=== PATIENT | female | born 1975 | race Caucasian/White ===

== ENCOUNTER 2019-12-31 17:53 | Emergency (ER) | payer MEDICAID ==
[~2019-12-31] VITALS: Ht 170.2 cm; Wt 72.7 kg
[2019-12-31 17:57] VITALS: BP 110/81
== END 2019-12-31 19:10 | disposition left against medical advice (07) ==
LOC: ER 17:53
DX: F10.129 Alcohol abuse with intoxication, unspecified (principal); F17.200 Nicotine dependence, unspecified, uncomplicated; Y90.9 Presence of alcohol in blood, level not specified
CPT/HCPCS: 99283

== ENCOUNTER 2020-05-23 12:30 | Emergency (ER) | payer MEDICAID ==
[~2020-05-23] VITALS: Ht 170.2 cm; Wt 63.0 kg
[~2020-05-23 12:30] MED LIST: LIDOcaine 1% 30ml preserv. free vial ONE
[2020-05-23 12:34] VITALS: BP 124/73
[2020-05-23] MEDS ORDERED: ibuprofen tablet 400 MG TABLET PO ONE (14:20)
[2020-05-23] MEDS ORDERED: CEPH500C5 PO (14:44)
[2020-05-23] MEDS ORDERED: BACDS PO (14:44)
== END 2020-05-23 15:01 | disposition home or self-care (01) ==
LOC: ER 12:30
DX: L02.512 Cutaneous abscess of left hand (principal); Z86.14 Personal history of Methicillin resistant Staphylococcus aureus infection; Z59.0 Homelessness; Z79.899 Other long term (current) drug therapy
CPT/HCPCS: 26010; 99283; J2001

== ENCOUNTER 2020-08-23 08:25 | Emergency (ER) | payer MEDICAID ==
[~2020-08-23] VITALS: Ht 170.2 cm; Wt 63.6 kg
[2020-08-23 08:30] VITALS: BP 154/78
== END 2020-08-23 09:07 | disposition home or self-care (01) ==
LOC: ER 08:28
DX: F15.10 Other stimulant abuse, uncomplicated (principal); Z59.0 Homelessness
CPT/HCPCS: 99281

== ENCOUNTER 2021-03-06 07:01 | Emergency (ER) | payer MEDICAID ==
[~2021-03-06] VITALS: Ht 170.2 cm; Wt 58.8 kg
[2021-03-06 07:09] VITALS: BP 130/74
[2021-03-06] MEDS ORDERED: BECL10.62 INH (07:46)
[2021-03-06] MEDS ORDERED: ALBU8.5H8 INH (07:46)
== END 2021-03-06 07:52 | disposition home or self-care (01) ==
LOC: ER 07:02
DX: J43.9 Emphysema, unspecified (principal); F15.90 Other stimulant use, unspecified, uncomplicated; Z76.0 Encounter for issue of repeat prescription; Z86.14 Personal history of Methicillin resistant Staphylococcus aureus infection; Z59.0 Homelessness; Z79.899 Other long term (current) drug therapy
CPT/HCPCS: 99281

== ENCOUNTER 2021-04-11 08:06 | Emergency (ER) | payer MEDICAID ==
[~2021-04-11] VITALS: Ht 170.2 cm; Wt 56.4 kg
[~2021-04-11 08:06] MED LIST changes: +ALBU8.5H8 INH; +BECL10.62 INH; -LIDOcaine 1% 30ml preserv. free vial ONE
[2021-04-11 08:13] VITALS: BP 151/79
[2021-04-11] MEDS ORDERED: aspirin 81mg tab.chew PO ONE (08:25)
--- NOTE | 2021-04-11 08:26 | NUR ---
ATTEMPTED TO LOCATE PT FOR EKG, UNABLE TO FIND HER.
--- NOTE | 2021-04-11 09:25 | NUR ---
attempted ekg, unable to locate patient.
== END 2021-04-11 10:02 | disposition home or self-care (01) ==
LOC: ER 08:07
DX: Z02.89 Encounter for other administrative examinations (principal); R42 Dizziness and giddiness; J43.9 Emphysema, unspecified; F15.90 Other stimulant use, unspecified, uncomplicated; Z86.14 Personal history of Methicillin resistant Staphylococcus aureus infection; Z59.0 Homelessness; Z79.899 Other long term (current) drug therapy
CPT/HCPCS: 99283

== ENCOUNTER 2021-05-11 11:42 | Emergency (ER) | payer MEDICAID ==
[~2021-05-11] VITALS: Ht 170.2 cm; Wt 58.2 kg
--- NOTE | 2021-05-11 13:28 | NUR ---
Shavon, friend, [phone]. Willing to provide tranportation.
[2021-05-11] MEDS ORDERED: normal saline 1000ml 1,000 ML IV ONE (13:30)
[2021-05-11] MEDS ORDERED: LORazepam 2 mg/ml vial IV ONE (13:35)
[2021-05-11] MEDS ORDERED: ceFAZolin/D5W- 1GM premix 50 ML IV ONE (13:40)
[2021-05-11 13:50] LABS: BASOPHILS # (AUTO) 0.1 X10'3 (0-0.2); BASOPHILS % (AUTO) 0.6 % (0-1); EOSINOPHILS # (AUTO) 0.3 X10'3 (0-0.9); EOSINOPHILS % (AUTO) 2.5 % (0-6); HEMATOCRIT 37.2 % (35.0-45.0); HEMOGLOBIN 12.8 g/dl (12.0-16.0); LYMPHOCYTES # (AUTO) 2.6 X10'3 (1.1-4.8); LYMPHOCYTES % (AUTO) 23.4 % (21-51); MEAN CORPUSCULAR HEMOGLOBIN 34.1 PG (27.0-31.0); MEAN CORPUSCULAR HGB CONC 34.4 g/dL (33.0-36.5); MEAN CORPUSCULAR VOLUME 99.3 FL (78-98); MEAN PLATELET VOLUME 7.4 FL (7.4-10.4); MONOCYTES % (AUTO) 8.6 % (2-12); NEUTROPHILS # (AUTO) 7.2 X10'3 (1.8-7.7); NEUTROPHILS % (AUTO) 64.9 % (42-75); PLATELET COUNT 364 X10'3 (140-440); RED BLOOD COUNT 3.75 X10'6 (4.20-5.60); RED CELL DISTRIBUTION WIDTH 13.7 % (11.5-14.5); WHITE BLOOD COUNT 11.2 X10'3 (4.5-11.0)
[2021-05-11 14:02] LABS: ALBUMIN 3.5 G/DL (3.4-5.0); ANION GAP 7 (8-16); BILIRUBIN,TOTAL 0.4 MG/DL (0.1-1.0); BLOOD UREA NITROGEN 21 MG/DL (7-18); BUN/CREATININE RATIO 33.9 (6.6-38.0); CALCIUM 8.4 MG/DL (8.5-10.1); CHLORIDE 103 MMOL/L (99-107); CREATININE 0.62 MG/DL (0.40-0.90); GLUCOSE 108 MG/DL (70-104); SODIUM 138 MMOL/L (135-145); TOTAL PROTEIN 6.2 G/DL (6.4-8.2); eGFR > 90 ML/MIN
[2021-05-11 14:03] LABS: ALANINE AMINOTRANSFERASE 29 U/L (12-78); ALBUMIN/GLOBULIN RATIO 1.3 (1.1-1.5); ALKALINE PHOSPHATASE 72 IU/L (46-116); ASPARTATE AMINO TRANSFERASE 22 U/L (10-37)
[2021-05-11 14:04] LABS: CREATINE KINASE 258 U/L (26-192)
[2021-05-11 14:07] LABS: ETHANOL < 0.010 GM/DL (0.0-0.010)
[2021-05-11 14:21] LABS: HCG SERUM QL NEGATIVE
--- NOTE | 2021-05-11 14:56 | NUR ---
Per , ok not to pull blood cultures prior to antibiotics
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
[2021-05-11] MEDS ORDERED: NICOTINE POLACRILEX 4 MG LOZENGE BC PRN (15:35)
[2021-05-11] MEDS ORDERED: NICOTINE POLACRILEX 2 MG LOZENGE BC PRN (15:40)
[2021-05-11 15:46] LABS: CLARITY,URINE CLEAR (Clear); COLOR,URINE YELLOW (Yellow); GLUCOSE, URINE NEGATIVE (Neg); KETONES,URINE NEGATIVE (Neg); LEUKOCYTE ESTERASE ,URINE NEGATIVE (Neg); NITRITES, URINE NEGATIVE (Neg); OCCULT BLOOD,URINE NEGATIVE (Neg); PROTEIN,URINE NEGATIVE (Neg); UA COLLECTION TYPE VOIDED; UROBILINOGEN,URINE 0.2 E.U/dL (0.2-1.0)
[2021-05-11 15:57] LABS: URINE AMPHETAMINE SCREEN POSITIVE (Neg); URINE BARBITUATE SCREEN NEGATIVE (Neg); URINE BENZODIAZEPINES SCREEN POSITIVE (Neg); URINE CANNABINOID SCREEN POSITIVE (Neg); URINE COCAINE SCREEN NEGATIVE (Neg); URINE METHADONE SCREEN NEGATIVE (Neg); URINE OPIATE SCREEN POSITIVE (Neg); URINE PHENCYCLIDINE SCREEN NEGATIVE (Neg)
[2021-05-11 16:22] VITALS: BP 140/71
[2021-05-12] MEDS ORDERED: ONDA4TAB6 PO (11:55)
[2021-05-12] MEDS ORDERED: AMOX-115 PO (11:55)
== END 2021-05-11 16:23 | disposition hospice, inpatient (51) ==
LOC: ER 11:43
DX: S02.401A Maxillary fracture, unspecified side, initial encounter for closed fracture (principal); J43.9 Emphysema, unspecified; F15.90 Other stimulant use, unspecified, uncomplicated; Z86.14 Personal history of Methicillin resistant Staphylococcus aureus infection; Z79.899 Other long term (current) drug therapy; Y08.89XA Assault by other specified means, initial encounter; Y93.89 Activity, other specified; Y92.89 Other specified places as the place of occurrence of the external cause; Y99.8 Other external cause status
CPT/HCPCS: 36415; 70450; 70486; 71045; 80053; 80305; 80320; 81003; 82550; 84703; 85025; 96361; 96365; 96375; 99285; J0690; J2060; J7030

== ENCOUNTER 2021-05-12 10:07 | Emergency (ER) | payer MEDICAID ==
[~2021-05-12] VITALS: Ht 170.2 cm; Wt 59.1 kg
[2021-05-12 10:22] VITALS: BP 129/84
--- NOTE | 2021-05-12 11:14 | NUR ---
DR. NGUYEN AT BEDSIDE. PT WAS SCHEDULED FOR SURGERY THIS AM AT [facility]. GOT UPSET WITH STAFF, LEFT AND CAME HERE.
[2021-05-12] MEDS ORDERED: LORazepam 1 MG tablet PO ONE (11:25)
[2021-05-12] MEDS ORDERED: ONDA4TAB6 PO (11:55)
[2021-05-12] MEDS ORDERED: AMOX-115 PO (11:55)
== END 2021-05-12 12:19 | disposition home or self-care (01) ==
LOC: ER 10:07
DX: S02.19XA Other fracture of base of skull, initial encounter for closed fracture (principal); J43.9 Emphysema, unspecified; F15.90 Other stimulant use, unspecified, uncomplicated; Z86.14 Personal history of Methicillin resistant Staphylococcus aureus infection; Z59.0 Homelessness; Z79.2 Long term (current) use of antibiotics; Z79.899 Other long term (current) drug therapy; X58.XXXA Exposure to other specified factors, initial encounter; Y93.89 Activity, other specified; Y92.89 Other specified places as the place of occurrence of the external cause; Y99.8 Other external cause status
CPT/HCPCS: 99283

== ENCOUNTER 2021-06-10 11:01 | Emergency (ER) | payer MEDICAID ==
[~2021-06-10 11:01] MED LIST changes: +ALBU8.5H17 INH; -ALBU8.5H8 INH; +ONDA4TAB6 PO
== END 2021-06-10 13:37 | disposition left against medical advice (07) ==
LOC: ER 11:06
DX: M54.2 Cervicalgia (principal); Z53.21 Procedure and treatment not carried out due to patient leaving prior to being seen by health care provider

== ENCOUNTER 2021-06-11 03:51 | Emergency (ER) | payer MEDICAID ==
[~2021-06-11] VITALS: Ht 170.2 cm; Wt 58.0 kg
[2021-06-11 03:58] VITALS: BP 146/119
[2021-06-11] MEDS ORDERED: ondansetron 4mg rapidly disintigrating tab PO ONE (04:40)
[2021-06-11] MEDS ORDERED: ketorolac tromethamine 15mg/ml inj. IM ONE (04:40)
== END 2021-06-11 05:00 | disposition home or self-care (01) ==
LOC: ER 03:53
DX: M54.2 Cervicalgia (principal); R11.0 Nausea; J43.9 Emphysema, unspecified; F15.90 Other stimulant use, unspecified, uncomplicated; Z86.14 Personal history of Methicillin resistant Staphylococcus aureus infection; Z59.0 Homelessness
CPT/HCPCS: 99281

== ENCOUNTER 2021-06-16 04:20 | Emergency (ER) | payer MEDICAID ==
[~2021-06-16] VITALS: Ht 170.2 cm; Wt 50.6 kg
[2021-06-16 05:01] VITALS: BP 129/87
== END 2021-06-16 06:43 | disposition left against medical advice (07) ==
LOC: ER 04:21
DX: M54.2 Cervicalgia (principal); Z53.21 Procedure and treatment not carried out due to patient leaving prior to being seen by health care provider

== ENCOUNTER 2021-07-31 12:24 | Emergency (ER) | payer MEDICAID ==
[~2021-07-31] VITALS: Ht 170.2 cm; Wt 56.6 kg
[2021-07-31 12:43] VITALS: BP 133/87
[2021-07-31 13:32] LABS: URINE HCG NEGATIVE (NEG)
[2021-07-31 13:41] LABS: CLARITY,URINE CLEAR (Clear); COLOR,URINE YELLOW (Yellow); GLUCOSE, URINE NEGATIVE (Neg); KETONES,URINE NEGATIVE (Neg); LEUKOCYTE ESTERASE ,URINE NEGATIVE (Neg); NITRITES, URINE NEGATIVE (Neg); OCCULT BLOOD,URINE NEGATIVE (Neg); PROTEIN,URINE NEGATIVE (Neg); UA COLLECTION TYPE CLN CATCH MIDSTREAM; UROBILINOGEN,URINE 0.2 E.U/dL (0.2-1.0)
[2021-07-31 13:56] LABS: URINE AMPHETAMINE SCREEN POSITIVE (Neg); URINE BARBITUATE SCREEN NEGATIVE (Neg); URINE BENZODIAZEPINES SCREEN NEGATIVE (Neg); URINE CANNABINOID SCREEN POSITIVE (Neg); URINE COCAINE SCREEN NEGATIVE (Neg); URINE METHADONE SCREEN NEGATIVE (Neg); URINE OPIATE SCREEN NEGATIVE (Neg); URINE PHENCYCLIDINE SCREEN NEGATIVE (Neg)
== END 2021-07-31 13:30 | disposition left against medical advice (07) ==
LOC: ER 12:24
DX: T76.21XA Adult sexual abuse, suspected, initial encounter (principal); J43.9 Emphysema, unspecified; F15.90 Other stimulant use, unspecified, uncomplicated; Z86.14 Personal history of Methicillin resistant Staphylococcus aureus infection; Z59.00 Homelessness unspecified; Z79.899 Other long term (current) drug therapy; Y08.89XA Assault by other specified means, initial encounter; Y93.89 Activity, other specified; Y92.89 Other specified places as the place of occurrence of the external cause; Y99.8 Other external cause status
CPT/HCPCS: 80305; 81003; 81025; 99281; 99283

== ENCOUNTER 2021-08-20 04:13 | Emergency (ER) | payer MEDICAID ==
[~2021-08-20] VITALS: Ht 170.2 cm; Wt 54.5 kg
[2021-08-20 04:28] VITALS: BP 123/87
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
== END 2021-08-20 09:32 | disposition left against medical advice (07) ==
LOC: ER 04:14
DX: R51.9 Headache, unspecified (principal); Z53.21 Procedure and treatment not carried out due to patient leaving prior to being seen by health care provider

== ENCOUNTER 2022-02-11 21:35 | Emergency (ER) | payer SELFPAY ==
[~2022-02-11] VITALS: Ht 170.2 cm; Wt 115.0 kg
[2022-02-11 21:41] VITALS: BP 151/89
--- NOTE | 2022-02-11 22:11 | NUR ---
Patient roomed, currently yelling and cursing profanities at the wall. Will continue to monitor.
== END 2022-02-11 22:18 | disposition left against medical advice (07) ==
LOC: ER 21:36
DX: R06.02 Shortness of breath (principal); Z53.21 Procedure and treatment not carried out due to patient leaving prior to being seen by health care provider

== ENCOUNTER 2022-03-25 01:18 | Emergency (ER) | payer OTHER ==
[~2022-03-25] VITALS: Ht 170.2 cm; Wt 49.1 kg
[2022-03-25 01:39] VITALS: BP 127/84
--- NOTE | 2022-03-25 02:12 | NUR ---
PT TO CT
== END 2022-03-25 03:35 | disposition home or self-care (01) ==
LOC: ER 01:19
DX: S09.8XXA Other specified injuries of head, initial encounter (principal); W22.8XXA Striking against or struck by other objects, initial encounter; Y93.89 Activity, other specified; Y92.89 Other specified places as the place of occurrence of the external cause; Y99.8 Other external cause status
CPT/HCPCS: 70450; 99284

== ENCOUNTER 2022-05-28 10:45 | Emergency (ER) | payer MEDICAID ==
[~2022-05-28] VITALS: Ht 167.6 cm; Wt 50.0 kg
[2022-05-28 10:51] VITALS: BP 145/91
== END 2022-05-28 12:20 | disposition home or self-care (01) ==
LOC: ER 10:47
DX: S06.0X9A Concussion with loss of consciousness of unspecified duration, initial encounter (principal); F10.10 Alcohol abuse, uncomplicated; J43.9 Emphysema, unspecified; F15.10 Other stimulant abuse, uncomplicated; Z86.14 Personal history of Methicillin resistant Staphylococcus aureus infection; Z79.899 Other long term (current) drug therapy; Y04.0XXA Assault by unarmed brawl or fight, initial encounter; Y93.89 Activity, other specified; Y92.89 Other specified places as the place of occurrence of the external cause; Y99.8 Other external cause status
CPT/HCPCS: 70450; 99284

== ENCOUNTER 2022-08-11 06:55 | Emergency (ER) | payer MEDICAID | END 2022-08-11 08:08 | disposition left against medical advice (07) | LOC: ER 06:56 | DX: Z48.00 Encounter for change or removal of nonsurgical wound dressing (principal); Z53.21 Procedure and treatment not carried out due to patient leaving prior to being seen by health care provider ==

== ENCOUNTER 2022-11-02 00:39 | Emergency (ER) | payer MEDICAID ==
[~2022-11-02] VITALS: Ht 170.2 cm; Wt 54.8 kg
[2022-11-02 01:00] VITALS: BP 114/88
[2022-11-02] MEDS ORDERED: normal saline 1000ML IV soln IVB ONE (01:20)
[2022-11-02] MEDS ORDERED: ipratropium/albuterol 3ml nebule IH ONE (01:20)
[2022-11-02] MEDS ORDERED: predniSONE 20 mg tablet PO ONE (01:20)
== END 2022-11-02 01:37 | disposition left against medical advice (07) ==
LOC: ER 00:40
DX: R06.02 Shortness of breath (principal); R07.89 Other chest pain; J44.9 Chronic obstructive pulmonary disease, unspecified; F17.200 Nicotine dependence, unspecified, uncomplicated; F15.90 Other stimulant use, unspecified, uncomplicated; F10.10 Alcohol abuse, uncomplicated; Z86.14 Personal history of Methicillin resistant Staphylococcus aureus infection; Z59.00 Homelessness unspecified; Y90.9 Presence of alcohol in blood, level not specified; Z79.899 Other long term (current) drug therapy
CPT/HCPCS: 71045; 93005; 99283; J7040

== ENCOUNTER 2022-11-02 08:46 | Emergency (ER) | payer MEDICAID ==
[~2022-11-02] VITALS: Ht 170.2 cm; Wt 48.0 kg
[2022-11-02 08:47] VITALS: BP 139/73
--- NOTE | 2022-11-02 10:20 | NUR ---
pt now able to register oral temp - see vitals - she has warm clothing and blankets as well as disposible heat pack. she is polite and cooperative with care.
[2022-11-02 11:37] LABS: CLARITY,URINE CLOUDY (Clear); COLOR,URINE YELLOW (Yellow); GLUCOSE, URINE NEGATIVE (Neg); KETONES,URINE TRACE mg/dl (Neg); LEUKOCYTE ESTERASE ,URINE NEGATIVE (Neg); NITRITES, URINE NEGATIVE (Neg); OCCULT BLOOD,URINE NEGATIVE (Neg); PROTEIN,URINE TRACE mg/dl (Neg)
[2022-11-02 11:39] LABS: URINE HCG NEGATIVE (NEG)
[2022-11-02 11:45] LABS: UA COLLECTION TYPE CLN CATCH MIDSTREAM
[2022-11-02 11:46] LABS: AMORPHOUS URATES 4+; BACTERIA,URINE NONE SEEN /HPF (Neg); MUCUS STRANDS FEW /LPF (Neg); RBC,URINE NONE SEEN /HPF (0-2); SQUAMOUS EPITHELIAL CELL,UR FEW /LPF (FEW); WBC,URINE NONE SEEN /HPF (0-4)
== END 2022-11-02 11:25 | disposition left against medical advice (07) ==
LOC: ER 08:46
DX: K42.9 Umbilical hernia without obstruction or gangrene (principal); R06.02 Shortness of breath; R05.9 Cough, unspecified; J44.9 Chronic obstructive pulmonary disease, unspecified; F17.200 Nicotine dependence, unspecified, uncomplicated; F12.90 Cannabis use, unspecified, uncomplicated; F15.90 Other stimulant use, unspecified, uncomplicated; F10.10 Alcohol abuse, uncomplicated; Z59.00 Homelessness unspecified; Z79.899 Other long term (current) drug therapy; Y90.9 Presence of alcohol in blood, level not specified
CPT/HCPCS: 81001; 81025; 99283